=== PATIENT | female | born 1960 | race Caucasian/White ===

== ENCOUNTER 2019-01-01 22:56 | Emergency (ER) | payer OTHER ==
[2019-01-01 23:11] VITALS: BP 130/73; PULSE 88; TEMP 98.1; BMI 34.3
--- NOTE | 2019-01-01 23:45 | PDOC ---
History of Present Illness - General Chief Complaint: Injury Stated Complaint: MISSED A STEP, INJURY TO LEFT ANKLE Time Seen by Provider: 01/01/19 23:12 History Source: Patient Exam Limitations: No Limitations - History of Present Illness Initial Comments: 01/01/19 23:41 58 yo F no pmhx here s/p trip and fall. was walking down stairs, missed a step, rolled her left ankle. falling forward. c/o left ankle pain. deformity noted, extreme pain. unable to bear weight. no knee or hp pain, no head injury. happened just prior to arrival. last ate at 10 pm. did not take anything for pain prior to arrival. no prior ankle surgeries. Past History - Past Medical History Allergies/Adverse Reactions: Allergies Allergy/AdvReac Type Severity Reaction Status Date / Time No Known Drug Allergies Allergy Verified 01/01/19 23:06 Home Medications: Ambulatory Orders Ibuprofen [Motrin -] 600 mg PO TID PRN #90 tablet MDD 3 01/02/19 Anemia: No Asthma: No Cancer: No Cardiac Disorders: No CVA: No COPD: No CHF: No Dementia: No Diabetes: No GI Disorders: Yes (gerd/hx h-pylori) Disorders: No HTN: No Hypercholesterolemia: No Liver Disease: No Seizures: No Thyroid Disease: No - Surgical History Abdominal Surgery: No Appendectomy: Yes (1976) Cardiac Surgery: No Cholecystectomy: No Lung Surgery: No Neurologic Surgery: No Orthopedic Surgery: No - Suicide/Smoking/Psychosocial Hx Smoking History: Never smoked Have you smoked in the past 12 months: No If you are a former smoker, when did you quit?: 1994 Information on smoking cessation initiated: No Hx Alcohol Use: No Drug/Substance Use Hx: No Substance Use Type: Alcohol Hx Substance Use Treatment: No Review of Systems - Review of Systems Constitutional: No: Chills, Diaphoresis HEENTM: No: Eye Pain Respiratory: No: Cough, Orthopnea Cardiac (ROS): No: Chest Pain, Edema : No: Burning, Dysuria Musculoskeletal: Yes: Joint Pain Integumentary: No: Bruising, Change in Color Neurological: No: Headache, Numbness All Other Systems: Reviewed and Negative *Physical Exam - Vital Signs Last Vital Signs Temp Pulse Resp BP Pulse Ox 98.1 F 88 16 130/73 100 01/01/19 23:07 01/01/19 23:07 01/01/19 23:07 01/01/19 23:07 01/01/19 23:07 - Physical Exam Comments: 01/01/19 23:43 awake alert head atraumatic. no cervical spine tenderness. lungs clear bilat heart rrr no mrg abd soft nt nd ext wwp. left ankle deformity noted, swelling. ttp over med mall, and lateral mall. 2+ dp/ pt pulses bilat. knee NT proximal tibia, fibula nontender. n/v intact. all other ext nontender, FRom. overlying skin intact. no eccymosis, no abrasions. 01/01/19 23:44 Procedures - Splinting Splint Location: Left: Ankle (post mold splint) Pre-Proc Neuro Vasc Exam: normal Splint Type: Yes: Short Leg Post-Proc Neuro Vasc Exam: normal Teodoro Bandage: yes Sling: No Complications: No Post splint xray: No ED Treatment Course - RADIOLOGY Radiology Studies Ordered: Category Date Time Status ANKLE & FOOT-LEFT* [RAD] Stat Radiology 01/01/19 23:12 Ordered Medical Decision Making - Medical Decision Making 01/01/19 23:44 58 yo F s/p trip and fall, obvious ankle deformity. likley bimall/ trimall fx. plan xray ankle. pain control. will d/w orthopedics. 01/02/19 01:04 xray right ankle questionable small avulsion fx fibula, ankle mortise measured medially 3.7 mm. due to amount of pain and swelling will place in posterior splint , made non weightbearing for concenrs for medial involmenet. given referral to dr etienne for followup and crutches. *DC/Admit/Observation/Transfer Diagnosis at time of Disposition: Ankle injury - Discharge Dispostion Disposition: HOME Condition at time of disposition: Improved - Prescriptions Prescriptions: Ibuprofen [Motrin -] 600 mg PO TID PRN #90 tablet MDD 3 PRN Reason: Pain - Referrals Referrals: Kp Etienne MD [Staff Physician] - - Patient Instructions Printed Discharge Instructions: Ankle Sprain Additional Instructions: you should follow up wtih dr Etienne. call to schedule to be seen within one week. see referral infomration and ask to be seen at the [place] [facility]. wear the splint until you follow up. do not put any weight on your left ankle. use crutches. ice and elevate to reduce swelling. for any numbness, color changes to toes, or any concerns. return immediately. - Post Discharge Activity Forms/Work/School Notes: Back to Work
[2019-01-02] MEDS ORDERED: KETOROLAC TROMETHAMINE 30 MG/1 ML VIAL IM ONE (01:04)
[2019-01-02] MEDS ORDERED: KETOROLAC TROMETHAMINE 30 MG/1 ML VIAL ONE (01:05)
== END 2019-01-02 01:40 | disposition home or self-care (01) ==
LOC: FER 22:56
PROC: 2W3QX1Z Immobilization of Right Lower Leg using Splint (ICD-10-PCS; principal; 2019-01-01)
PROC: 3E0233Z Introduction of Anti-inflammatory into Muscle, Percutaneous Approach (ICD-10-PCS; 2019-01-01)
DX: S99.911A Unspecified injury of right ankle, initial encounter (principal); W10.8XXA Fall (on) (from) other stairs and steps, initial encounter; Y93.89 Activity, other specified; Y92.89 Other specified places as the place of occurrence of the external cause
CPT/HCPCS: 73610-TC-LT-FY; 73610-TC-RT-FY; 73630-TC-LT; 99281-25

== ENCOUNTER 2020-03-08 18:16 | Emergency (ER) | payer OTHER | END 2020-03-08 19:18 | disposition home or self-care (01) | LOC: JVIRT 18:16 | DX: Z03.818 Encounter for observation for suspected exposure to other biological agents ruled out (principal); J02.9 Acute pharyngitis, unspecified | CPT/HCPCS: C9803; Q3014-GT; U0003 ==

== ENCOUNTER 2020-05-23 09:28 | Emergency (ER) | payer OTHER ==
[2020-05-23 09:41] VITALS: BP 133/85; PULSE 88; TEMP 98.9; BMI 37.8
[2020-05-23 10:00] LABS: EPITHELIAL CELLS RARE /hpf
[2020-05-23 10:27] LABS: BASO % 0.7 % (0-2.0); HEMOGLOBIN 14.7 GM/dl (10.7-15.3); LYMPH % 35.2 % (8-40); MCH 33.3 pg (25.7-33.7); MEAN CELL VOLUME 95.3 fl (80-96); MEAN PLT VOLUME 9.1 fl (7.5-11.1); MONO % 8.5 % (3.8-10.2); NEUT % 54.6 % (42.8-82.8); PLATELET COUNT 256 K/MM3 (134-434); RBC 4.41 M/mm3 (3.60-5.2); RDW 12.1 % (11.6-15.6); WHITE BLOOD COUNT 5.5 K/mm3 (4.0-10.8)
[2020-05-23 10:35] LABS: BILIRUBIN,TOTAL 0.5 mg/dl (0.2-1); CALCIUM 8.9 mg/dl (8.5-10); CREATININE 0.7 mg/dl (0.55-1.3); POTASSIUM 3.8 mmol/L (3.5-5.1)
== END 2020-05-23 13:10 | disposition home or self-care (01) ==
LOC: FER 09:28
DX: R31.9 Hematuria, unspecified (principal); R10.9 Unspecified abdominal pain
CPT/HCPCS: 36415; 74176-TC; 80053; 81003; 81015; 82962; 85025; 87086; 99284-25

== ENCOUNTER 2021-09-23 19:47 | Emergency (ER) | payer OTHER ==
[2021-09-23 20:20] VITALS: BP 142/100; PULSE 81; TEMP 98.4; BMI 39.4
== END 2021-09-23 22:14 | disposition home or self-care (01) ==
LOC: FER 19:47
DX: S93.402A Sprain of unspecified ligament of left ankle, initial encounter (principal); S80.12XA Contusion of left lower leg, initial encounter; W01.0XXA Fall on same level from slipping, tripping and stumbling without subsequent striking against object, initial encounter
CPT/HCPCS: 73590-TC-LT-FY; 73610-TC-LT-FY; 73630-TC-LT; 93971-TC; 99284-25